=== PATIENT | female | born 1965 | race Caucasian/White ===

== ENCOUNTER 2017-08-15 13:28 | Emergency (ER) | payer OTHER ==
--- NOTE | 2017-08-15 13:48 | PDOC ---
History of Present Illness - General Chief Complaint: Cold Symptoms Stated Complaint: FEVER Time Seen by Provider: 08/15/17 13:37 - History of Present Illness Initial Comments: 08/15/17 14:56 The patient is a 52 year old female with no significant PMH who presents for evaluation of flu like symptoms. The patient reports a 2 day history of fevers , chills, sore throat, nasal congestion, and body aches. She reports 1 episode of non-bilious, non-bloody vomiting earlier today prompting her to present to the ENT clinic. ENT clinic sent her to the ED for further evaluation. The patient reports that she has been taking advil at home to manage her symptoms and has been able to continue drinking fluids. She denies chest pain, SOB, abdominal pain, or changes with urination or bowel movements. Past History - Past Medical History Allergies/Adverse Reactions: Allergies Allergy/AdvReac Type Severity Reaction Status Date / Time morphine AdvReac Mild Nausea Verified 08/15/17 14:00 codeine AdvReac Verified 08/15/17 14:00 Home Medications: Ambulatory Orders Clonazepam 0.5 mg PO BID 06/15/13 Venlafaxine HCl [Effexor] 75 mg PO HS 06/15/13 Venlafaxine HCl [Effexor -] 150 mg PO AM 06/24/13 Anemia: No Asthma: No Cancer: No Cardiac Disorders: Yes (ARRYTHMIA) CVA: No COPD: No CHF: No Dementia: No Diabetes: No GI Disorders: Yes (GAS) Disorders: No HTN: No Hypercholesterolemia: No Liver Disease: No Psychiatric Problems: Yes (ANXIETY,DEPRESSION) Seizures: No Thyroid Disease: No - Surgical History Abdominal Surgery: Yes Appendectomy: Yes Cardiac Surgery: No Cholecystectomy: Yes Lung Surgery: No Neurologic Surgery: No Orthopedic Surgery: No - Immunization History Immunization Up to Date: Yes - Suicide/Smoking/Psychosocial Hx Smoking Status: No Smoking History: Never smoked Number of Cigarettes Smoked Daily: 0 Cigars Per Day: 0 Hx Alcohol Use: No Drug/Substance Use Hx: No Substance Use Type: None Review of Systems - Review of Systems Comments:: 08/15/17 14:58 Constitutional: Fevers, chills, malaise. No fatigue, HEENT: nasal congestion. No Rhinorrhea, visual changes Cardiovascular: No chest pain, syncope, palpitations, lightheadedness Respiratory: No Cough, SOB, Hemoptysis, Gastrointestinal: No Abdominal pain, Nausea, Vomiting, Constipation, Diarrhea, Melena Genitourinary: No Dysuria, Frequency, Urgency, Hesitancy, Hematuria, Flank pain Musculoskeletal: No Myalgia, arthralgia Skin: No rashes, bruising, pallor Neurologic: No Headache, Dizziness, Numbness, Weakness, or Tingling *Physical Exam - Physical Exam Comments: 08/15/17 15:00 General Appearance: Nourished. No Apparent Distress HEENT: EOMI, MADDY. Mild Pharyngeal Erythema. No Tonsillar Exudate, Tonsillar Erythema Neck: No Cervical Lymphadenopathy Respiratory/Chest: Lungs Clear, Normal Breath Sounds. No Crackles, Rales, Rhonchi, Wheezing Cardiovascular: Regular Rhythm, Regular Rate. No Murmur, Gallops, Rubs Gastrointestinal/Abdominal: Normal Bowel Sounds, Soft. No Guarding, Rebound, Tenderness Musculoskeletal: No CVA Tenderness Extremity: Normal Capillary Refill Integumentary: Normal Color, Dry, Warm Neurologic: Fully Oriented, Alert, Normal Mood/Affect, Normal Response, Medical Decision Making - Medical Decision Making 08/15/17 15:01 The patient is a 52 year old female with no significant PMH who presents for evaluation of flu like symptoms. Differential includes but is not limited to: Influenza, Strep, meningitis, endocarditis. It is unlikely her symptoms are due to a meningitis or endocarditis, given her physical exam. Given her history and physical, it is likely her symptoms are due to influenza or some other viral illness. We will test for influenza and strep. We will treat her with toradol, tylenol, and zofran. We will continue to monitor and reassess. 08/15/17 15:03 The patient has tested influenza A positive. She reports mild improvement in her symptoms. We discussed the results with the patient as well as proper care while recovering with the flu. She voiced understanding and is agreeable with the plan. *DC/Admit/Observation/Transfer Diagnosis at time of Disposition: Influenza A - Discharge Dispostion Disposition: HOME Condition at time of disposition: Improved Admit: No - Referrals Referrals: Bettye Field MD [Primary Care Provider] - - Patient Instructions Printed Discharge Instructions: DI for Influenza -- Adult Additional Instructions: Please return to the ER if you experience concerning or worsening symptoms including worsening fevers, chills, or cough. Please call to schedule a follow up appointment within 1 week to discuss your ER visit. You have tested flu positive. There is no treatment for the flu and your body will naturally recover over the next week. You may use ibuprofen as need to help manage your symptoms at home. Continue to drink plenty of fluids. - Post Discharge Activity Forms/Work/School Notes: Back to Work
[2017-08-15 13:50] VITALS: BMI 60.5
[2017-08-15] MEDS ORDERED: KETOROLAC TROMETHAMINE 30 MG/1 ML VIAL IM ONE (14:00)
[2017-08-15] MEDS ORDERED: ONDANSETRON *ODT* 4 MG TABLET SL ONE (14:00)
[2017-08-15] MEDS ORDERED: ACETAMINOPHEN 500 MG TABLET (FP) PO ONE (14:00)
[2017-08-15] MEDS ORDERED: KETOROLAC TROMETHAMINE 30 MG/1 ML VIAL ONE (14:18)
[2017-08-15] MEDS ORDERED: ONDANSETRON *ODT* 4 MG TABLET ONE (14:18)
[2017-08-15] MEDS ORDERED: ACETAMINOPHEN 325 MG TABLET (FP) ONE (14:18)
--- NOTE | 2017-08-15 14:51 | PDOC ---
Attending Attestation - Resident Resident Name: VivianaEmmanuel - ED Attending Attestation I have performed the following: I have examined & evaluated the patient, The case was reviewed & discussed with the resident, I agree w/resident's findings & plan, Exceptions are as noted - HPI HPI: 08/15/17 14:48 52 years old with no past medical history who presents to the emergency department with influenza-like illness. Patient has fever chills bodyache nasal congestion cough. Symptoms started . No travel tolerating fluids - Physicial Exam PE: 08/15/17 14:50 Vitals: Triage Vital signs reviewed General Appearance: no acute distress, well nourished well developed, Head: Atraumatic, Chest Wall: Nontender Cardiac: Regular rate and rhythym, no murmurs, no rubs, no gallops, Lungs: Clear to auscultation bilateral, good air movement bilaterally, Abdomen: Soft, non distended, normal bowel sounds, non tender to palpation Extremities: Full range of motion to all extremities, no cyanosis, clubbing, or edema Skin: Warm and dry, no rashes or lesions, no rash, no petechiae - Medical Decision Making 08/15/17 14:51 History and examination consistent with influenza-like illness. We'll treat symptomatically with Toradol, Tylenol fluids antiemetics and reassess 08/15/17 18:41 Flu positive patient feels better findings, the need follow-up and strict return instructions discussed with patient.
[2017-08-15 15:33] VITALS: BP 137/78; PULSE 78; TEMP 100.1
== END 2017-08-15 15:39 | disposition home or self-care (01) ==
LOC: JER 13:28
PROC: 3E0233Z Introduction of Anti-inflammatory into Muscle, Percutaneous Approach (ICD-10-PCS; principal; 2017-08-15)
DX: J09.X2 Influenza due to identified novel influenza A virus with other respiratory manifestations (principal)
CPT/HCPCS: 87070; 87430; 87804; 96372; 99282-25

== ENCOUNTER 2020-08-31 10:37 | Emergency (ER) | payer OTHER ==
[2020-08-31 10:50] VITALS: TEMP 98.6; BMI 28.3
[2020-08-31 13:11] LABS: BASO % 0.6 % (0-2.0); EOS % 1.7 % (0-4.5); HEMATOCRIT 42.6 % (32.4-45.2); HEMOGLOBIN 13.9 GM/dL (10.7-15.3); LYMPH % 39.9 % (8-40); MCH 26.7 pg (25.7-33.7); MCHC 32.5 g/dl (32.0-36.0); MEAN CELL VOLUME 81.9 fl (80-96); MEAN PLT VOLUME 9.1 fl (7.5-11.1); NEUT % 50.8 % (42.8-82.8); PLATELET COUNT 215 K/MM3 (134-434); RDW 14.3 % (11.6-15.6)
[2020-08-31 13:30] LABS: CHLORIDE 106 mmol/L (98-107); POTASSIUM 4.4 mmol/L (3.5-5.1); SODIUM 140 mmol/L (136-145)
[2020-08-31 13:32] LABS: ALBUMIN 4.4 g/dl (3.4-5.0); CALCIUM 9.3 mg/dL (8.5-10.1)
[2020-08-31 13:33] LABS: ANION GAP 6 MMOL/L (8-16); BLOOD UREA NITROGEN 12.4 mg/dL (7-18); CO2 29 mmol/L (21-32); GLUCOSE,RANDOM 87 mg/dL (74-106)
[2020-08-31 13:36] LABS: CREATININE 0.9 mg/dL (0.55-1.3); SGOT/AST 29 U/L (15-37); SGPT/ALT 39 U/L (13-61)
[2020-08-31 13:37] LABS: BILIRUBIN,TOTAL 0.3 mg/dL (0.2-1)
[2020-08-31 13:38] LABS: ALK PHOS 93 U/L (45-117)
[2020-08-31 15:30] VITALS: BP 114/82; PULSE 64
== END 2020-08-31 15:29 | disposition home or self-care (01) ==
LOC: JER 10:37
DX: R07.9 Chest pain, unspecified (principal)
CPT/HCPCS: 36415; 71046-TC-FY; 80053; 82550; 82553; 83690; 84484; 85025; 93005; 93010; 99284-25

== ENCOUNTER 2021-09-18 11:29 | Emergency (ER) | payer OTHER ==
[2021-09-18 11:44] VITALS: BP 124/81; PULSE 63; TEMP 97.5; BMI 27.4
[2021-09-18] MEDS ORDERED: ACETAMINOPHEN 1000 MG/100 ML VIAL IVPB ONE (12:51)
[2021-09-18] MEDS ORDERED: ONDANSETRON 4 MG/2 ML VIAL IVPUSH ONE (12:51)
[2021-09-18] MEDS ORDERED: SODIUM CHLORIDE 1,000 ML IV STA (12:51)
[2021-09-18] MEDS ORDERED: ACETAMINOPHEN INJECTION 100 ML IVPB ONE (12:58)
[2021-09-18] MEDS ORDERED: ONDANSETRON 4 MG/2 ML VIAL ONE (12:58)
[2021-09-18 13:27] LABS: BASO % 0.7 % (0-2.0); EOS % 2.2 % (0-4.5); HEMATOCRIT 37.9 % (32.4-45.2); HEMOGLOBIN 12.4 GM/dL (10.7-15.3); LYMPH % 42.8 % (8-40); MCH 25.8 pg (25.7-33.7); MCHC 32.7 g/dl (32.0-36.0); MEAN PLT VOLUME 8.4 fl (7.5-11.1); MONO % 7.3 % (3.8-10.2); PLATELET COUNT 240 10^3/uL (134-434); RBC 4.79 M/mm3 (3.60-5.2); RDW 14.8 % (11.6-15.6); WHITE BLOOD COUNT 5.2 K/mm3 (4.0-10.0)
[2021-09-18 13:33] LABS: INR 1.15 (0.83-1.09); PROTHROMBIN TIME (PATIENT) 12.9 SEC (9.7-13.0)
[2021-09-18 13:53] LABS: CALCIUM 9.3 mg/dL (8.5-10.1)
[2021-09-18 13:54] LABS: ALBUMIN 3.9 g/dl (3.4-5.0); BLOOD UREA NITROGEN 16.6 mg/dL (7-18)
[2021-09-18 13:57] LABS: CREATININE 0.8 mg/dL (0.55-1.3)
[2021-09-18 13:58] LABS: BILIRUBIN,TOTAL 0.3 mg/dL (0.2-1)
[2021-09-18 13:59] LABS: TOT PROT 7.6 g/dl (6.4-8.2)
[2021-09-18] MEDS ORDERED: KETOROLAC TROMETHAMINE 30 MG/1 ML VIAL IVPUSH ONE (17:29)
[2021-09-18] MEDS ORDERED: METOCLOPRAMIDE HCL INJECTION 10 MG/2 ML VIAL IVPB ONE (17:29)
[2021-09-18] MEDS ORDERED: KETOROLAC TROMETHAMINE 30 MG/1 ML VIAL ONE (17:35)
[2021-09-18] MEDS ORDERED: METOCLOPRAMIDE HCL INJECTION 10 MG/2 ML VIAL ONE (17:35)
[2021-09-19 03:03] LABS: EPI CELLS 10 /uL (0-25.1); HYALINE CASTS 8 /uL (0-3.1); PH,URINE >= 9.0 (5.0-8.0); URINE APPEARANCE TURBID; URINE BACTERIA >9,000 /uL (0-1359); URINE BILIRUBIN NEGATIVE (NEGATIVE); URINE COLOR YELLOW; URINE GLUCOSE (UA) NEGATIVE (NEGATIVE); URINE KETONE NEGATIVE (NEGATIVE); URINE LEUK ESTERASE 3+ (NEGATIVE); URINE NITRITE NEGATIVE (NEGATIVE); URINE PROTEIN 3+ (NEGATIVE); URINE UROBILINOGEN 0.2 mg/dL (0.2-1.0); URINE WBC 1048 /uL (0-25.8)
[2021-09-19 04:57] LABS: URINE CRYSTALS PRESENT /hpf; YEAST NONE SEEN (NEGATIVE)
== END 2021-09-18 20:42 | disposition home or self-care (01) ==
LOC: JER 11:29
PROC: 3E0333Z Introduction of Anti-inflammatory into Peripheral Vein, Percutaneous Approach (ICD-10-PCS; principal; 2021-09-18)
PROC: 3E0333Z Introduction of Anti-inflammatory into Peripheral Vein, Percutaneous Approach (ICD-10-PCS; 2021-09-18)
PROC: 3E033GC Introduction of Other Therapeutic Substance into Peripheral Vein, Percutaneous Approach (ICD-10-PCS; 2021-09-18)
PROC: 3E033GC Introduction of Other Therapeutic Substance into Peripheral Vein, Percutaneous Approach (ICD-10-PCS; 2021-09-18)
PROC: 3E0337Z Introduction of Electrolytic and Water Balance Substance into Peripheral Vein, Percutaneous Approach (ICD-10-PCS; 2021-09-18)
DX: R10.31 Right lower quadrant pain (principal); M54.31 Sciatica, right side
CPT/HCPCS: 36415; 74177-TC; 76830-TC; 80053; 81003; 85025; 85610; 87086; 99285-25; C9803; J0131; Q9967; U0003; U0005

== ENCOUNTER 2022-06-27 11:09 | Emergency (ER) | payer OTHER ==
[2022-06-27 11:39] VITALS: BP 122/83; PULSE 88; RESP 17; TEMP 101.8; BMI 29.2
[2022-06-27] MEDS ORDERED: KETOROLAC TROMETHAMINE 30 MG/1 ML VIAL IM ONE (12:20)
[2022-06-27] MEDS ORDERED: ACETAMINOPHEN 500 MG TABLET (FP) PO ONE (12:20)
== END 2022-06-27 16:40 | disposition home or self-care (01) ==
LOC: JER 11:09
DX: U07.1 COVID-19 (principal)
CPT/HCPCS: 0241U-QW; 71046-TC-FY; 93005; 93010; 99285-25

== ENCOUNTER 2022-07-24 18:00 | Emergency (ER) | payer OTHER ==
[2022-07-24 18:10] VITALS: BP 155/80; PULSE 72; RESP 18; TEMP 98.3; BMI 26.5
[2022-07-24] MEDS ORDERED: SODIUM CHLORIDE 0.9% 500 ML INFUS.BAG IV ONE (20:02)
[2022-07-24] MEDS ORDERED: ACETAMINOPHEN 1000 MG/100 ML BAG IVPB ONE (20:02)
[2022-07-24] MEDS ORDERED: ACETAMINOPHEN INJECTION 100 ML IVPB ONE (20:53)
== END 2022-07-25 00:19 | disposition home or self-care (01) ==
LOC: JER 18:00
PROC: 3E033NZ Introduction of Analgesics, Hypnotics, Sedatives into Peripheral Vein, Percutaneous Approach (ICD-10-PCS; principal; 2022-07-24)
PROC: 3E033GC Introduction of Other Therapeutic Substance into Peripheral Vein, Percutaneous Approach (ICD-10-PCS; 2022-07-24)
DX: R51.9 Headache, unspecified (principal)
CPT/HCPCS: 0241U-QW; 99284-25

== ENCOUNTER 2022-07-26 19:24 | Emergency (ER) | payer OTHER ==
[2022-07-26 19:43] VITALS: BP 122/81; PULSE 98; RESP 19; TEMP 98.6; BMI 26.5
== END 2022-07-26 21:24 | disposition home or self-care (01) ==
LOC: JER 19:24
DX: G47.00 Insomnia, unspecified (principal)
CPT/HCPCS: 99281-25

== ENCOUNTER 2022-09-04 09:55 | Emergency (ER) | payer OTHER ==
[2022-09-04 10:08] VITALS: RESP 18; TEMP 98.5; BMI 25.6
[2022-09-04] MEDS ORDERED: ACETAMINOPHEN 325 MG TABLET (FP) PO ONE (12:35)
[2022-09-04] MEDS ORDERED: ACETAMINOPHEN 325 MG TABLET (FP) ONE (12:39)
[2022-09-04 13:20] LABS: VENOUS BASE EXCESS 2.3 mmol/L (-2-2); VENOUS PCO2 53.1 mmHg (38-52); VENOUS PH 7.354 (7.310-7.410)
[2022-09-04 13:22] LABS: HEMATOCRIT 41.9 % (32.4-45.2); HEMOGLOBIN 13.3 GM/dL (10.7-15.3); MCH 25.5 pg (25.7-33.7); MCHC 31.7 g/dl (32.0-36.0); MEAN CELL VOLUME 80.6 fl (80-96); MEAN PLT VOLUME 8.4 fl (7.5-11.1); PLATELET COUNT 297 10^3/uL (134-434); RBC 5.19 M/mm3 (3.60-5.2); RDW 14.6 % (11.6-15.6); WHITE BLOOD COUNT 6.5 K/mm3 (4.0-10.0)
[2022-09-04 13:49] LABS: ALBUMIN 4.2 g/dl (3.4-5.0); BLOOD UREA NITROGEN 11.2 mg/dL (7-18); CALCIUM 9.5 mg/dL (8.5-10.1)
[2022-09-04 13:52] LABS: CREATININE 0.8 mg/dL (0.55-1.3)
[2022-09-04 13:54] LABS: BILIRUBIN,TOTAL 0.3 mg/dL (0.2-1); TOT PROT 7.5 g/dl (6.4-8.2)
[2022-09-04 15:38] VITALS: BP 126/78; PULSE 70
== END 2022-09-04 15:38 | disposition home or self-care (01) ==
LOC: JER 09:55
DX: R51.9 Headache, unspecified (principal)
CPT/HCPCS: 0241U-QW; 36415; 80053; 82375; 82803; 85027; 99283-25

== ENCOUNTER 2023-01-27 15:18 | Emergency (ER) | payer OTHER ==
[2023-01-27 15:46] VITALS: RESP 18; BMI 24.1
[2023-01-27 17:40] VITALS: BP 162/99; PULSE 77; TEMP 97.9
[2023-01-27] MEDS ORDERED: SODIUM CHLORIDE 1,000 ML IV STA (18:11)
[2023-01-27 18:58] LABS: BASO % 0.4 % (0-2.0); EOS % 0.5 % (0-4.5); HEMOGLOBIN 13.2 GM/dL (10.7-15.3); MCH 26.5 pg (25.7-33.7); MCHC 33.9 g/dl (32.0-36.0); MEAN CELL VOLUME 78.2 fl (80-96); MONO % 5.6 % (3.8-10.2); NEUT % 61.5 % (42.8-82.8); PLATELET COUNT 211 10^3/uL (134-434); WHITE BLOOD COUNT 6.2 K/mm3 (4.0-10.0)
[2023-01-27 19:16] LABS: CALCIUM 9.4 mg/dL (8.5-10.1)
[2023-01-27 19:17] LABS: BLOOD UREA NITROGEN 9.9 mg/dL (7-18)
[2023-01-27 19:19] LABS: CREATININE 0.8 mg/dL (0.55-1.3)
[2023-01-27 19:21] LABS: BILIRUBIN,TOTAL 0.3 mg/dL (0.2-1); TOT PROT 7.1 g/dl (6.4-8.2)
== END 2023-01-27 20:35 | disposition home or self-care (01) ==
LOC: JER 15:18
PROC: 3E0337Z Introduction of Electrolytic and Water Balance Substance into Peripheral Vein, Percutaneous Approach (ICD-10-PCS; principal; 2023-01-27)
DX: R20.2 Paresthesia of skin (principal); R42 Dizziness and giddiness; Z72.89 Other problems related to lifestyle; Z60.9 Problem related to social environment, unspecified
CPT/HCPCS: 36415; 71046-TC-FY; 80053; 84443; 84484; 85025; 93005; 93010; 99285-25

== ENCOUNTER 2023-08-25 13:10 | Emergency (ER) | payer OTHER ==
[2023-08-25 13:39] VITALS: BMI 23.6
[2023-08-25 16:37] VITALS: BP 139/91; PULSE 87; RESP 16; TEMP 98.1
== END 2023-08-25 16:30 | disposition home or self-care (01) ==
LOC: JER 13:10
DX: R22.0 Localized swelling, mass and lump, head (principal)
CPT/HCPCS: 70450-TC; 70486-TC; 99284-25